=== PATIENT | female | born 1955 | race Caucasian/White ===

== ENCOUNTER 2021-07-04 07:42 | Day surgery (SDC) | payer MEDICARE ==
[~2021-07-04] VITALS: Ht 175.3 cm; Wt 99.1 kg
[~2021-07-04 07:42] MED LIST: CETI10 PO; EPIN.3I IM; HYDACE5 PO; IBUP800; METO25ER PO; OMEP20ER PO; PRED20 PO; RXHYDACE PO; Zofran Odt4 MG SL
--- NOTE | 2021-07-04 08:53 | NUR ---
PT AMBULATES TO [facility] STEADY GAIT. History, Chart, Medications and Allergies reviewed before start of procedure. Lungs clear T/O to Auscultation. Patient confirms NPO status and agrees with scheduled surgery. Patient States Post-Procedure ride home has been arranged.
--- NOTE | 2021-07-04 10:10 | NUR ---
07/04/21 1010 Tom Lr History, Chart, Medications and Allergies reviewed before start of procedure. Patient confirms NPO status and agrees with scheduled surgery. 3-LEAD EKG REVIEWED WITH PHYSICIAN PRIOR TO START OF PROCEDURE. MONITOR INTACT WITH CONTINUOUS PULSE OXIMETRY AND INTERMITTENT BP. PATIENT DETERMINED TO BE ASA APPROPRIATE FOR PROPOFOL SEDATION PRIOR TO START OF PROCEDURE BY DR. PINTO. HURRICAINE SPRAY TO OROPHARYX. Bite Block Placed, WILL BE REMOVED AFTER PROCEDURE.
--- NOTE | 2021-07-04 11:03 | NUR ---
Discharge instructions reviewed with patient. Patient verbalizes understanding. Copy given to patient to take home. Patient States Post-Procedure ride home has been arranged. Discharged via wheelchair to private car for ride home.
== END 2021-07-04 11:01 | disposition home or self-care (01) ==
LOC: ORSCMMR 07:42 → ORD 09:00 → ORSCMMR 11:01
PROVIDERS: Internal Medicine Gastroenterology
PROC: 0DB48ZX Excision of Esophagogastric Junction, Via Natural or Artificial Opening Endoscopic, Diagnostic (ICD-10-PCS; principal; 2021-07-04 09:00)
PROC: 0DB58ZX Excision of Esophagus, Via Natural or Artificial Opening Endoscopic, Diagnostic (ICD-10-PCS; principal; 2021-07-04 09:00)
PROC: 0DBM8ZX Excision of Descending Colon, Via Natural or Artificial Opening Endoscopic, Diagnostic (ICD-10-PCS; principal; 2021-07-04 09:00)
DX: K22.70 Barrett's esophagus without dysplasia (principal); Z12.11 Encounter for screening for malignant neoplasm of colon; D12.4 Benign neoplasm of descending colon; K44.9 Diaphragmatic hernia without obstruction or gangrene; I10 Essential (primary) hypertension; E66.9 Obesity, unspecified; Z68.33 Body mass index [BMI] 33.0-33.9, adult; Z79.899 Other long term (current) drug therapy
CPT/HCPCS: A9270; J2250; J2704; J7120

== ENCOUNTER 2025-07-10 09:04 | Day surgery (SDC) | payer MEDICARE ==
[2025-07-10] VITALS (12 sets, daily range): BP systolic 121–195; BP diastolic 71–104
[~2025-07-10] VITALS: Ht 177.8 cm; Wt 104.3 kg
--- NOTE | 2025-07-10 09:33 | NUR ---
Ambulatory in Day Surgery History, Chart, Medications and Allergies reviewed before start of procedure. Pre-Op teaching done. Pt verbalizes understanding. Patient States Post-Procedure ride home has been arranged.
[2025-07-10] MEDS ORDERED: Benzocaine Oral Spray 0.5ML UD ONE (09:57)
--- NOTE | 2025-07-10 10:30 | NUR ---
07/10/25 1030 Halima Cedeño CONFIRMED AND REVIEWED H&P, MEDCICATIONS, ALLERGIES, MEDICAL HISTORY, RESPIRATORY HISTORY, VITAL SIGNS, 3-LEAD EKG, CONSENTS, AND PHYSICIAN ORDERS. PATIENT CONFIRMS NPO STATUS AND AGREES WITH SCHEDULED PROCEDURE. MONITOR INTACT WITH CONTINUOUS PULSE OXIMETRY, CAPNOGRAPHY, 3-LEAD EKG, INTERMITTENT BP. SUPPLEMENTAL O2 TO BE TITRATED THROUGHOUT PROCEDURE TO MAINTAIN O2 SATURATION ABOVE 90%. PATIENT DETERMINED TO BE ASA APPROPRIATE FOR PROPOFOL SEDATION PRIOR TO START OF PROCEDURE BY DR. PINTO
--- NOTE | 2025-07-10 11:04 | NUR ---
Patient up to Ambulate independently. Gait steady WITH STAND BY ASSISTANCE. Discharge instructions reviewed with patient. Patient verbalizes understanding. Copy given to patient to take home. Discharged via wheelchair to private car for ride home WITH
== END 2025-07-10 11:06 | disposition home or self-care (01) ==
LOC: ORSCMMR 09:04 → ORD 10:30 → ORSCMMR 11:06
PROVIDERS: Internal Medicine Gastroenterology
PROC: 0DB58ZX Excision of Esophagus, Via Natural or Artificial Opening Endoscopic, Diagnostic (ICD-10-PCS; principal; 2025-07-10 10:30)
PROC: 0DB48ZX Excision of Esophagogastric Junction, Via Natural or Artificial Opening Endoscopic, Diagnostic (ICD-10-PCS; principal; 2025-07-10 10:30)
DX: K22.70 Barrett's esophagus without dysplasia (principal); K44.9 Diaphragmatic hernia without obstruction or gangrene; I10 Essential (primary) hypertension; Z85.3 Personal history of malignant neoplasm of breast; Z79.899 Other long term (current) drug therapy
CPT/HCPCS: 88305; 88342; A9270; J2704; J7120